=== PATIENT | male | born 2000 | race African-American/Black ===

== ENCOUNTER 2023-01-25 16:55 | Emergency (ER) | payer OTHER ==
--- NOTE | 2023-01-25 17:06 | ED Physician Documentation ---
History of Present Illness - Stated complaint Stated Complaint: NEAR SYNCOPE/DIZZY/BLURRY VISION - Additonal information Additional information: 22-year-old male presents emergency department via EMS for evaluation of feeling lightheaded and dizzy and diaphoretic while completing PT exercises at the [facility] gym. He had been doing the rowing machine, as he described very hard, for about 7 minutes when he began to feel flushed and lightheaded. Denies chest pain or shortness of air. He stopped rowing and got up and felt dizzy. He then sat down and said that his vision was blurry. EMS was summoned to the scene and on presentation they report that he did have some orthostasis with drop in his blood pressures to the 90s. His HR was in the 120's at that time. en route to the emergency department he began to feel better. On presentation in the emergency department is alert and well-appearing. Denying chest pain or shortness of air. Patient describes himself as physically fit participating in weight strength exercises and basketball games often. Review of Systems Cardiac: denies: Chest pain / pressure, Palpitations Respiratory: denies: Dyspnea GI: reports: Reviewed and negative : reports: Reviewed and negative Skin: reports: Reviewed and negative PD PAST MEDICAL HISTORY - Present Medications Home Medications: Ambulatory Orders Medication Instructions Recorded Confirmed No Known Home Medications 01/25/23 01/25/23 - Allergies Allergies/Adverse Reactions: Allergies Allergy/AdvReac Type Severity Reaction Status Date / Time No Known Drug Allergies Allergy Verified 01/25/23 17:05 PD ED PE NORMAL - General General: Alert and oriented X 3, No acute distress, Well developed/nourished - HEENT HEENT: Atraumatic, Moist mucous membranes - Neck Neck: Supple, no meningeal sign - Cardiac Cardiac: RRR, No murmur - Respiratory Respiratory: No respiratory distress, Clear bilaterally - Abdomen Abdomen: Normal bowel sounds, Soft - Back Back: No CVA TTP - Derm Derm: Normal color, Warm and dry - Extremities Extremities: No deformity - Neuro Neuro: Alert and oriented X 3, cdl a driver 2-12 intact Eye Opening: Spontaneous Motor: Obeys Commands Verbal: Oriented GCS Score: 15 Results - Vitals Vitals: Vital Signs - 24 hr 01/25/23 01/25/23 17:01 17:40 Temperature 36.8 C Heart Rate 92 Heart Rate [ 96 Sitting] Heart Rate [ 105 H Standing] Heart Rate [ 106 H Supine] Respiratory 22 Rate Blood Pressure 145/45 H Blood Pressure 141/45 H [Sitting] Blood Pressure 123/53 L [Standing] Blood Pressure 134/52 H [Supine] O2 Saturation 98 Oxygen O2 Source Room air - EKG (time done) 1655 EKG releavant findings:: EKG personally interpreted by author of this note. Relevant findings are: Rate: Rate (enter#) (92) Rhythm: NSR [place]: Normal Intervals: Normal UT QRS: Normal Ischemia: Normal ST segments Computer interpretation: Agree with computer - Labs Labs: Laboratory Tests 01/25/23 01/25/23 17:10 17:10 WBC 8.2 RBC 5.25 Hgb 15.9 Hct 48.5 MCV 92.4 MCH 30.3 MCHC 32.8 RDW 12.7 Plt Count 301 MPV 9.9 Neut # (Auto) 6.3 Lymph # (Auto) 1.0 L Edmunds # (Auto) 0.6 Eos # (Auto) 0.2 Baso # (Auto) 0.0 Absolute Nucleated RBC 0.00 Nucleated RBC % 0.0 Sodium 140 Potassium 3.2 L Chloride 101 Carbon Dioxide 24 Anion Gap 15.0 H BUN 15 Creatinine 1.6 H Estimated GFR (MDRD) 55 L Glucose 86 Calcium 10.4 H Total Bilirubin 0.4 AST 22 ALT 22 Alkaline Phosphatase 58 Total Protein 7.6 Albumin 4.7 Globulin 2.9 Albumin/Globulin Ratio 1.6 Lipase 15 - Rads (name of study) cxr Relevant Findings:: EMP independent interpretation of test (No acute cardiopulmonary process.) PD Medical Decision Making - ED course Complexity details: reviewed results, re-evaluated patient, d/w patient ED course: 22-year-old male presents emergency department for evaluation of near syncope, lightheadedness and dizziness. He was undergoing PT testing through the [employer] and had been working on the rowing machine for more than 7 minutes when he began to feel faint and lightheaded. He denied that he was having any chest pain or shortness of air. When EMS was summoned to the scene they found that he had a heart rate of 120, sinus rhythm but was mildly orthostatic with a soft pressure in the 90s when he stood. By the time he had transported to the emergency department his symptoms had resolved and he was feeling better with no specific complaints. Twelve-lead EKG as interpreted myself is nonischemic shows no evidence of ST elevation or pericarditis. A chest x-ray also is interpreted by myself showed no findings to suggest pneumonia, pleural effusion or cardiomegaly. Orthostatics were rechecked here in the emergency department and he did have some mild rise in his heart rate from sitting to standing but no changes in blood pressures. I did administer him a liter of IV fluids and on recheck his HR had improved. His CBC was unremarkable for age however his electrolytes revealed a BUN of 20 and a creatinine of 1.6. This creatinine may be mildly elevated given the workout history, though the patient does not present as being obviously dehydrated. Patient denies he has any preceding history of kidney disease or kidney disease in primary members of his family. Patient is advised to follow closely with [facility] this upcoming week to have his renal function rechecked and he is advised to avoid PT training/testing until cleared by [facility]. He feels comfortable with discharge home. The usual emergent return precautions were discussed for worsening symptoms. Departure - Departure Disposition: 01 Home, Self Care Clinical Impression: Near syncope, Elevated serum creatinine Condition: Stable Record reviewed to determine appropriate education?: Yes Comments: Ant you are seen today in the emergency department when you had a near fainting episode after rolling on the machine hard for more than 7 minutes. It is likely that you simply overexerted yourself as the cause for your symptoms. Your EKG and CBC today were essentially normal. Your chest x-ray did not show any worrisome findings. The only abnormality of worry on your labs was an elevated creatinine of 1.6. This may be due to mild dehydration and working out but it is not typically seen in otherwise young healthy individuals. We gave you IV fluids here in the emergency department and over the next week I would like you to make sure you are staying well-hydrated so that when you urinate your urine is very pale yellow. Please follow very closely with [facility] to have your renal function rechecked within the next week. I would like you to avoid PT testing until cleared by [facility]. Return sooner to the ER for any new or worsening symptoms.
[2023-01-25 17:16] LABS: BASOPHILS % (AUTO) 0.1 %; EOSINOPHILS # (AUTO) 0.2 10^3/uL (0.0-0.7); EOSINOPHILS % (AUTO) 2.3 %; HCT - HEMATOCRIT 48.5 % (42.0-52.0); HGB - HEMOGLOBIN 15.9 g/dL (14.0-18.0); LYMPHOCYTES % (AUTO) 12.7 %; MEAN CORPUSCULAR HEMOGLOBIN 30.3 pg (27.0-31.0); MEAN CORPUSCULAR HGB CONC 32.8 g/dL (32.0-36.0); MEAN CORPUSCULAR VOLUME 92.4 fL (80.0-94.0); MEAN PLATELET VOLUME 9.9 fL (7.4-11.4); MONOCYTES # (AUTO) 0.6 10^3/uL (0.0-1.0); MONOCYTES % (AUTO) 6.9 %; NEUTROPHILS # (AUTO) 6.3 10^3/uL (1.5-6.6); NEUTROPHILS % (AUTO) 77.6 %; PLT - PLATELET COUNT 301 10^3/uL (130-450); RED BLOOD COUNT 5.25 10^6/uL (4.70-6.10); RED CELL DISTRIBUTION WIDTH 12.7 % (12.0-15.0); WHITE BLOOD COUNT 8.2 x10^3/uL (4.8-10.8)
[2023-01-25] MEDS ORDERED: SODIUM CHLORIDE 0.9% 1,000 ML IV STA (17:42)
[2023-01-25 17:56] LABS: ALBUMIN 4.7 g/dL (3.2-5.5); ALBUMIN/GLOBULIN RATIO 1.6 (1.0-2.2); BILIRUBIN,TOTAL 0.4 mg/dL (0.2-1.0); CALCIUM 10.4 mg/dL (8.5-10.3); CREATININE 1.6 mg/dL (0.6-1.3); POTASSIUM 3.2 mmol/L (3.5-4.5); TOTAL PROTEIN 7.6 g/dL (6.4-8.9)
--- NOTE | 2023-01-25 18:25 | XRAY Report ---
PROCEDURE: Chest 1 View X-Ray INDICATIONS: Chest Pain TECHNIQUE: One view of the chest was acquired. COMPARISON: None. FINDINGS: Surgical changes and devices: None. Lungs and pleura: No pleural effusions or pneumothorax. Lungs are clear. Mediastinum: Mediastinal contours appear normal. Heart size is normal. Bones and chest wall: No suspicious bony lesions. Overlying soft tissues appear unremarkable. IMPRESSION: No acute cardiopulmonary process. Reviewed by: Damian Nielsen MD on 01/25/2023 6:24 PM [facility] Approved by: Damian Nielsen MD on 01/25/2023 6:24 PM [facility] Station ID: [id number]
[2023-01-25 19:30] VITALS: BP 140/63; O2SAT 100
== END 2023-01-25 19:35 | disposition home or self-care (01) ==
LOC: ED 16:55
DX: R55 Syncope and collapse (principal); R94.4 Abnormal results of kidney function studies
CPT/HCPCS: 36415; 80053; 83690; 85025; 93005; 99284